=== PATIENT | female | born 1975 | race Two or more races ===

== ENCOUNTER → 2018-12-16 | Outpatient (CLI) | payer BC ==
[~2018-12-16] MED LIST: Birth Control Pill PO
[2018-12-16 13:18] LABS: BASOPHILS # (AUTO) 0.08 x10^3/uL (0-0.1); BASOPHILS % (AUTO) 1 % (0-1); EOSINOPHILS # (AUTO) 0.04 x10^3/uL (0-0.4); EOSINOPHILS % (AUTO) 1 % (1-7); LYMPHOCYTES # (AUTO) 2.25 x10^3/uL (1-3.4); LYMPHOCYTES % (AUTO) 32 % (22-44); MD NO; MEAN CORPUSCULAR HEMOGLOBIN 31.1 pg (27.0-34.8); MEAN CORPUSCULAR HGB CONC 34.3 g/dL (32.4-35.8); MEAN CORPUSCULAR VOLUME 90.7 fL (80-100); MEAN PLATELET VOLUME 7.7 fL (7.4-10.4); MONOCYTES # (AUTO) 0.35 x10^3/uL (0.2-0.8); MONOCYTES % (AUTO) 5 % (2-9); NEUTROPHILS # (AUTO) 4.37 x10^3/uL (1.8-6.8); NEUTROPHILS % (AUTO) 62 % (42-75); PLATELET COUNT 333 x10^3/uL (130-400); RED BLOOD COUNT 4.32 x10^6/uL (3.82-5.3); RED CELL DISTRIBUTION WIDTH 12.4 % (9.6-15.2)
== END | disposition home or self-care (01) ==
LOC: STAR 12:07
PROVIDERS: ATTEND Obstetrics & Gynecology
DX: Z30.2 Encounter for sterilization (principal)
CPT/HCPCS: 36415; 84703; 85025

== ENCOUNTER 2018-12-21 09:52 | Day surgery (SDC) | payer BC ==
[~2018-12-21] VITALS: Ht 147.3 cm; Wt 56.6 kg
[~2018-12-21 09:52] MED LIST changes: +BUPIVACAINE/PF 0.25% ONE; +DIPHENHYDRAMINE 50 MG/ML, 1ML IVPush PRN; +EPINEPHRINE 1 MG/ML, 1ML ONE; +FENTANYL PF 100 MCG/2ML IV PRN; +HALOPERIDOL 5 MG/ML IV PRN; +HYDROmorphone 2 MG/ML, 1ML IVPush PRN; +LABETALOL 5MG/ML, 20ML IV PRN; +MEPERIDINE/PF 25MG/0.5ML IVPush PRN; +METOPROLOL 1 MG/ML, 5ML IV PRN; +OXYcodone 5 MG/5 ML ORAL.SOL UDC PO PRN; +PROCHLORPERAZINE 5 MG/ML, 2ML IV PRN; +PROMETHAZINE 25 MG/ML, 1ML IV PRN; +SILVER NITRATE STICK TP ONE; +hydrALAzine 20 MG/ML, 1ML IV PRN
[2018-12-21] MEDS ORDERED: LACTATED RINGERS 1,000 ML IV SCH (10:11)
[2018-12-21] MEDS ORDERED: GABAPENTIN 300 MG CAPSULE PO ONE (10:30)
[2018-12-21] MEDS ORDERED: SCOPOLAMINE PATCH, 1.5MG PATCH.TD72 TD ONE (10:30)
[2018-12-21] MEDS ORDERED: ACETAMINOPHEN 500 MG TABLET PO ONE (10:30)
[2018-12-21 11:07] LABS: HCG UR SG 1.017 (1.003-1.030)
[2018-12-21] MEDS ORDERED: KETOROLAC 30 MG/1 ML ONE (12:29)
[2018-12-21] MEDS ORDERED: NEOSTIGMINE 1 MG/ML, 10ML ONE (12:29)
[2018-12-21] MEDS ORDERED: ONDANSETRON 2MG/ML, 2ML ONE (12:29)
[2018-12-21] MEDS ORDERED: GLYCOPYRROLATE 0.2MG/1ML, 5ML ONE (12:29)
[2018-12-21] MEDS ORDERED: CEFAZOLIN 1,000 MG ONE (12:29)
[2018-12-21] MEDS ORDERED: PROPOFOL 10 MG/ML, 20ML ONE (12:29)
[2018-12-21] MEDS ORDERED: ROCURONIUM 10 MG/ML,10ML ONE (12:29)
[2018-12-21] MEDS ORDERED: DEXAMETHASONE 4 MG/ML, 1ML ONE (12:29)
[2018-12-21] MEDS ORDERED: SUCCINYLCHOLINE 20 MG/ML, 10ML ONE (12:29)
[2018-12-21] MEDS ORDERED: FENTANYL PF 100 MCG/2ML ONE (12:30)
[2018-12-21] MEDS ORDERED: OXYcodone 5 MG/5 ML ORAL.SOL UDC ONE (13:54)
== END 2018-12-21 17:06 | disposition home or self-care (01) ==
LOC: OUT 09:52
PROVIDERS: ATTEND Obstetrics & Gynecology
DX: Z30.2 Encounter for sterilization (principal); Z79.899 Other long term (current) drug therapy; Z98.890 Other specified postprocedural states
CPT/HCPCS: 36415; 58661; 81025; 86850; 86900; 88302; J0171; J0330; J0690; J1100; J1885; J2405; J2704; J2710; J3010; J3490; J7120